=== PATIENT | female | born 1980 | race Two or more races ===

== ENCOUNTER 2016-09-29 10:03 | Emergency (ER) | payer OTHER ==
[2016-09-29 10:07] VITALS: TEMP 98.1; BMI 37.1
[2016-09-29] MEDS ORDERED: ONDANSETRON 4 MG/2 ML VIAL IVPB ONE (10:26)
[2016-09-29] MEDS ORDERED: SODIUM CHLORIDE 1,000 ML IV ONE (10:26)
[2016-09-29] MEDS ORDERED: ONDANSETRON 4 MG/2 ML VIAL ONE (10:59)
[2016-09-29] MEDS ORDERED: METOCLOPRAMIDE HCL INJECTION 10 MG/2 ML VIAL IVPUSH ONE (11:00)
[2016-09-29] MEDS ORDERED: METOCLOPRAMIDE HCL INJECTION 10 MG/2 ML VIAL ONE (11:01)
--- NOTE | 2016-09-29 11:06 | PDOC ---
History of Present Illness - General Chief Complaint: Nausea/Vomiting Stated Complaint: vomiting Time Seen by Provider: 09/29/16 10:25 History Source: Patient Exam Limitations: No Limitations - History of Present Illness Initial Comments: 09/29/16 11:02 36y F hx of migraines, approx 2 weeks s/p gastric bypass presents with headache. The pt states that she had a gradual onset headache last night, that is frontal, pounding, sasociated with photophobia, nausea/vomiting, radiates to the right side and to the posterior scalp similar in nature to previous headaches (states she was dx in [place], takes tramadol, but did not take any meds last night). pt deneis any vision changes, numbness/tingling/weakness, abdominal pain, fever/chills, dysuria, frequency. pt denies any allergies LMP was 2 yrs ago - staets she took a depo shot, but her period has not returned to normal. Past History - Past Medical History Allergies/Adverse Reactions: Allergies Allergy/AdvReac Type Severity Reaction Status Date / Time No Known Allergies Allergy Verified 01/22/15 16:36 Home Medications: Ambulatory Orders NK [No Known Home Medication] 01/22/15 Asthma: No Cancer: No Cardiac Disorders: No Diabetes: No HTN: Yes Suicide Attempt (Hx): No Seizures: No Thyroid Disease: No - Surgical History Gastric Stapling: Yes ([facility] 08/2016) - Psycho/Social/Smoking Cessation Hx Anxiety: No Suicidal Ideation: No Smoking History: Never smoked Have you smoked in the past 12 months: No Information on smoking cessation initiated: No Hx Alcohol Use: No Drug/Substance Use Hx: No Substance Use Type: None Hx Substance Use Treatment: No Review of Systems - Review of Systems Able to Perform ROS?: Yes Comments:: 09/29/16 11:04 Constitutional - no reported Fever, Chills, weakness, HEENT: no reported vision changes, sore throat Respiratory: no reported cough, sob, hemoptysis Cardiac: no reported chest pain, palpitations, light headedness, leg swelling Abd/GI: + nausea, vomiting, no reported abd pain, blood per rectum, melena, diarrhea : no reported dysuria, frequency, discharge Musculskelatal - no reported back pain, joint swelling skin - no reported bruising, erythema, rash neurological: +headache, no reported numbness, focal weakness, tingling, ataxia , weakness hematologic: no reported anemia, easy bruising, easy bleeding *Physical Exam - Vital Signs Last Vital Signs Temp Pulse Resp BP Pulse Ox 98.1 F 62 20 142/85 100 09/29/16 10:04 09/29/16 10:04 09/29/16 10:04 09/29/16 10:04 09/29/16 10:04 - Physical Exam Comments: 09/29/16 11:04 GENERAL: The patient is awake, alert, and fully oriented, Nontoxic - in no acute distress. HEAD: Normocephalic, atraumatic. EYES: extraocular movements intact, sclera anicteric, conjunctiva clear, PEERL ENT: Normal voice, Moist mucous membranes. NECK: Normal range of motion, supple LUNGS: Breath sounds equal, clear to auscultation bilaterally. No wheezes, no rhonchi, no rales. HEART: Regular rate and rhythm, normal S1 and S2 without murmur, rub or gallop. ABDOMEN: Soft, nontender, normoactive bowel sounds. No guarding, no rebound. No CVA tenderness, 3healing scars in the mid abdomen without erythema/fluctuance /discharge EXTREMITIES: Normal range of motion, no edema. No clubbing or cyanosis. No cords, erythema, or tenderness. NEUROLOGICAL: No facial assymetry, Normal speech, moving all 4 extremities spontaneously and symmetrically, PSYCH: Normal mood, normal affect. 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 I answered all of the patient's questions. The patient was satisfied with the care received and felt comfortable with the discharge plan and treatment plan. The patient will call their primary care physician within 24 hours to arrange follow-up and will return to the Emergency Department with any new, persistent or worsening symptoms. *DC/Admit/Observation/Transfer Diagnosis at time of Disposition: Migraine Qualifiers: Migraine type: other Status migrainosus presence: without status migrainosus Intractability: not intractable Qualified Code(s): G43.809 - Other migraine, not intractable, without status migrainosus - Discharge Dispostion Disposition: HOME Condition at time of disposition: Improved Admit: No - Referrals Referrals: Lila Kimball MD [Primary Care Provider] - Carito Perdomo MD [Staff Physician] - - Patient Instructions Printed Discharge Instructions: DI for Migraine Additional Instructions: Vuelva al departamento de emergencia inmediatamente con CUALQUIER nuevo, persistente o empeorando sntomas incluyendo dolor de ally recurrente, vmitos , cambios de visin, entumecimiento, hormigueo, debilidad o cualquier otra preocupacin. Asegrese de que est recibiendo un sueo adecuado en la hidratacin. [place] ibuprofeno o Tylenol para hay dolor de ally. Usted DEBE llamar y seguir con hay doctor maana para la evaluacin adicional de amol sntomas. Los resultados fueron discutidos con usted. Por favor, asegrese de que hay mdico revise los resultados de hay evaluacin de emergencia. ========= Return to the emergency department immediately with ANY new, persistent or worsening symptoms including recurrent headache, vomiting, vision changes, numbness, tingling, weakness or any other concerns. Make sure you are getting adequate sleep at hydration. Take ibuprofen or Tylenol for your headache. You MUST call and follow up with your doctor tomorrow for further evaluation of your symptoms. Results were discussed with you. Please make sure your doctor reviews the results of your emergency evaluation. Print Language: YORUBA
[2016-09-29 11:38] LABS: BASOPHIL 0.4 % (0-2.0); EOSINOPHIL 0.4 % (0-4.5); MCHC 34.2 g/dl (32.0-36.0); MEAN CELL VOLUME 87.7 fl (80-96); MEAN PLT VOLUME 8.5 fl (7.5-11.1); NEUTROPHILS 79.1 % (42.8-82.8); PLATELET COUNT 358 K/MM3 (134-434); RDW 13.4 % (11.6-15.6); WHITE BLOOD COUNT 7.3 K/mm3 (4.0-10.0)
[2016-09-29 12:03] LABS: ALBUMIN 3.9 g/dl (3.4-5.0); ALK PHOS 70 U/L (45-117); ANION GAP 11 (8-16); BILIRUBIN,TOTAL 0.3 mg/dL (0.2-1.0); CALCIUM 9.2 mg/dL (8.5-10.1); CO2 27 mmol/L (21-32); CREATININE 0.7 mg/dL (0.55-1.02); GLUCOSE,RANDOM 84 mg/dL (74-106); SGOT/AST 30 U/L (15-37); SGPT/ALT 47 U/L (12-78); TOT PROT 7.5 g/dl (6.4-8.2)
[2016-09-29 12:36] LABS: URINE APPEARANCE CLEAR; URINE BILIRUBIN NEGATIVE (NEGATIVE); URINE COLOR LTYELLOW; URINE GLUCOSE (UA) NEGATIVE (NEGATIVE); URINE KETONE 1+ (NEGATIVE); URINE NITRITE NEGATIVE (NEGATIVE); URINE PROTEIN NEGATIVE (NEGATIVE); URINE UROBILINOGEN NEGATIVE E.U./dl (0.2-1.0)
[2016-09-29 12:42] LABS: URINE BLOOD 1+ (NEGATIVE); URINE LEUK ESTERASE 1+ (NEGATIVE)
[2016-09-29] MEDS ORDERED: KETOROLAC TROMETHAMINE 30 MG/1 ML VIAL IVPUSH ONE (12:52)
[2016-09-29] MEDS ORDERED: MAGNESIUM SULF 50% (8.12 MEQ/2 ML-1 GM VIAL) IVPB ONE (12:52)
[2016-09-29 12:55] LABS: URINE MUCUS RARE; URINE RBC 1 /hpf (0-3); URINE WBC 6 /hpf (3-5)
[2016-09-29] MEDS ORDERED: MAGNESIUM SULF 50% (8.12 MEQ/2 ML-1 GM VIAL) ONE (13:53)
[2016-09-29] MEDS ORDERED: KETOROLAC TROMETHAMINE 30 MG/1 ML VIAL ONE (13:54)
[2016-09-29 15:03] VITALS: BP 130/68; PULSE 73
== END 2016-09-29 15:03 | disposition home or self-care (01) ==
LOC: JER 10:03
PROC: 3E0333Z Introduction of Anti-inflammatory into Peripheral Vein, Percutaneous Approach (ICD-10-PCS; principal; 2016-09-29)
PROC: 3E033GC Introduction of Other Therapeutic Substance into Peripheral Vein, Percutaneous Approach (ICD-10-PCS; 2016-09-29)
PROC: 3E0337Z Introduction of Electrolytic and Water Balance Substance into Peripheral Vein, Percutaneous Approach (ICD-10-PCS; 2016-09-29)
DX: G43.809 Other migraine, not intractable, without status migrainosus (principal); Z98.84 Bariatric surgery status; I10 Essential (primary) hypertension
CPT/HCPCS: 36415; 80053; 81003; 81015; 84703; 85025; 96361; 96374; 96375; 99284-25

== ENCOUNTER 2016-11-18 09:07 | Emergency (ER) | payer OTHER ==
[2016-11-18 09:21] VITALS: BP 115/82; PULSE 75; TEMP 98.1; BMI 32.0
[2016-11-18] MEDS ORDERED: ACETAMINOPHEN 500 MG TABLET (FP) ONE (10:42)
[2016-11-18] MEDS ORDERED: DIPHTH,PERTUSS(ACELL),TET 0.5 ML DISP.SYRIN IM ONE (11:07)
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
== END 2016-11-18 11:28 | disposition home or self-care (01) ==
LOC: JER 09:07 → JERFT 09:07
PROC: 0HQGXZZ Repair Left Hand Skin, External Approach (ICD-10-PCS; principal; 2016-11-18)
PROC: 3E0234Z Introduction of Serum, Toxoid and Vaccine into Muscle, Percutaneous Approach (ICD-10-PCS; 2016-11-18)
DX: S61.412A Laceration without foreign body of left hand, initial encounter (principal); W26.0XXA Contact with knife, initial encounter; Y93.89 Activity, other specified; Y92.038 Other place in apartment as the place of occurrence of the external cause; I10 Essential (primary) hypertension
CPT/HCPCS: 12001-25; 90471; 90715; 99281-25

== ENCOUNTER 2017-02-21 09:25 | Emergency (ER) | payer OTHER ==
[2017-02-21 09:29] VITALS: BP 129/91; PULSE 71; TEMP 98; BMI 29.2
--- NOTE | 2017-02-21 10:14 | PDOC ---
History of Present Illness - General Chief Complaint: Injury Stated Complaint: RT FOREARM PAIN, BRUISE Time Seen by Provider: 02/21/17 09:55 History Source: Patient Exam Limitations: No Limitations - History of Present Illness Initial Comments: 02/21/17 10:14 My chief complaint: Right lateral wrist pain History of present illness: Patient is a 37-year-old female with no significant medical history here today complaining of right lateral wrist pain after twisting her right wrist holding a large bottle of water last night. Patient reports that pain is currently as 6 out of 10. Patient took acetaminophen last night nothing today. There is no gross deformity of her right wrist or hand or forearm noted. Patient denies any numbness of her right hand or wrist. 02/21/17 12:02 Occurred: reports: yesterday Severity: reports: moderate (rt. lateral wrist ) Upper Extremity Pain Location: right: wrist (lateral ) Method of Injury: reports: twisted (rt. wrist while picking up a large bottle of water) Modifying Factors: improves with: None Extremity Pain Location - Extremity Pain Location Extremity Pain Locations: right: other (lateral wrist) Past History - Past Medical History Allergies/Adverse Reactions: Allergies Allergy/AdvReac Type Severity Reaction Status Date / Time No Known Allergies Allergy Verified 02/21/17 09:29 Home Medications: Ambulatory Orders Naproxen [Naprosyn -] 500 mg PO BID PRN #14 tablet 02/21/17 Asthma: No Cancer: No Cardiac Disorders: No Diabetes: No HTN: No Suicide Attempt (Hx): No Seizures: No Thyroid Disease: No - Surgical History Gastric Stapling: Yes ([facility] 08/2016) - Psycho/Social/Smoking Cessation Hx Anxiety: No Suicidal Ideation: No Smoking History: Never smoked Have you smoked in the past 12 months: No Hx Alcohol Use: No Drug/Substance Use Hx: No Substance Use Type: None Hx Substance Use Treatment: No Review of Systems - Review of Systems Able to Perform ROS?: Yes Constitutional: No: Symptoms Reported HEENTM: No: Symptoms Reported Respiratory: No: Symptoms reported Cardiac (ROS): No: Symptoms Reported ABD/GI: No: Symptoms Reported : No: Symptoms Reported Musculoskeletal: Yes: Joint Pain (rt. lateral wrist). No: Joint Swelling Integumentary: No: Symptoms Reported Neurological: No: Symptoms reported *Physical Exam - Vital Signs Last Vital Signs Temp Pulse Resp BP Pulse Ox 98.0 F 71 18 129/91 100 02/21/17 09:26 02/21/17 09:26 02/21/17 09:26 02/21/17 09:26 02/21/17 09:26 - Physical Exam General Appearance: Yes: Appropriately Dressed Comments:: 02/21/17 10:10 radial pulse 4 + rt. Extremity: positive: Normal Capillary Refill, Normal Inspection, Normal Range of Motion (rt. wrist, elbow, all digits rt. hand), Tender (rt.lateral wrist) Integumentary: positive: Normal Color Neurologic: positive: Normal Response, Respond to painful stimul (rt. hand/wrist /forearm), Responsive. negative: Motor Strength 5/5 (motor/strength rt. wrist 3 /4), Numbness, Sensory Deficit (rt. hand/wrist/forearm) Procedures - Consent Consent obtained: From Patient - Splinting Splint Location: Right: Wrist Pre-Proc Neuro Vasc Exam: normal Splint Type: Yes: Wrist (wrist ) Post-Proc Neuro Vasc Exam: normal Rad Bandage: 3" Sling: No Complications: No Medical Decision Making - Medical Decision Making 02/21/17 10:15 Patient is a 37-year-old female with no significant medical history here today complaining of right lateral wrist pain after twisting her right wrist holding a large bottle of water last night. Patient reports that pain is currently as 6 out of 10. Patient took acetaminophen last night nothing today. There is no gross deformity of her right wrist or hand or forearm noted. Patient denies any numbness of her right hand or wrist. r/o amadou abnormality rt. wrist versus strain rt.wrist PLAN: urine hcg negative xray rt. wrist no gross abnormality noted per Dr. Krishnamurthy 02/21/17 10:55 02/21/17 12:02 02/22/17 08:20 *DC/Admit/Observation/Transfer Diagnosis at time of Disposition: Sprain of wrist, right Qualifiers: Encounter type: initial encounter Qualified Code(s): S63.501A - Unspecified sprain of right wrist, initial encounter - Discharge Dispostion Disposition: HOME Condition at time of disposition: Stable - Prescriptions Prescriptions: Naproxen [Naprosyn -] 500 mg PO BID PRN #14 tablet PRN Reason: Pain - Referrals Referrals: Lila Kimball MD [Primary Care Provider] - James Licae MD [Staff Physician] - - Patient Instructions Additional Instructions: Follow up with orthopedist if pain persist Wear wrist immobilizer during the day take off at night Return to emergency room if symptoms worsen any numbness of your right hand or wrist or forearm Patient voiced understanding of discharge instructions and all questions were answered Seguir con un ortopedista si el dolor persiste Use inmovilizador de mueca naif el da despegue en la noche Regrese a la hossein de emergencias si los sntomas empeoran cualquier entumecimiento de hay mano derecha o mueca o antebrazo Comprensin del paciente sobre las instrucciones de mick y todas las preguntas fueron contestadas
[2017-02-21] MEDS ORDERED: NAPROXEN 500 MG TABLET (FP) PO ONE (10:57)
[2017-02-21] MEDS ORDERED: NAPROXEN 500 MG TABLET (FP) ONE (11:02)
== END 2017-02-21 12:13 | disposition home or self-care (01) ==
LOC: JERFT 09:25
PROC: 2W3EX1Z Immobilization of Right Hand using Splint (ICD-10-PCS; principal; 2017-02-21)
DX: S63.501A Unspecified sprain of right wrist, initial encounter (principal); X58.XXXA Exposure to other specified factors, initial encounter; Y93.89 Activity, other specified; Y92.9 Unspecified place or not applicable
CPT/HCPCS: 73110-TC-RT; 73130-TC-RT; 84703; 99281-25

== ENCOUNTER 2017-04-06 09:33 | Emergency (ER) | payer OTHER ==
[2017-04-06 09:45] VITALS: BP 106/69; PULSE 57; TEMP 97.9; BMI 29.2
--- NOTE | 2017-04-06 10:30 | PDOC ---
History of Present Illness - General Chief Complaint: Headache Stated Complaint: HEAD PAIN Time Seen by Provider: 04/06/17 10:28 History Source: Patient Exam Limitations: No Limitations - History of Present Illness Initial Comments: CHIEF COMPLAINT: 37 y/o afebrile female with no significant PMH c/o headache and nausea for the past 1 week. HISTORY OF PRESENT ILLNESS: The patient admits she has never had symptoms like this before. She has been taking 400mg of Advil periodically with no relief. She denies neck pain, dizziness, fall, head trauma, LOC, f/c, cough, changes in vision/hearing, v/d, CP, SOB, abd pain, back pain, hematuria, dysuria. She called her doctor, Dr. Chapman, and she suggested she come here. Vital signs on arrival are within normal limits. REVIEW OF SYSTEMS: GENERAL/CONSTITUTIONAL: No fever/chills. No weakness. No weight change. HEAD, EYES, EARS, NOSE AND THROAT: No change in vision. No ear pain or discharge. No sore throat. CARDIOVASCULAR: No chest pain or shortness of breath. RESPIRATORY: No cough, wheezing, or hemoptysis. GASTROINTESTINAL: +nausea. No vomiting, diarrhea, constipation. GENITOURINARY: No dysuria, frequency, or change in urination. MUSCULOSKELETAL: No joint or muscle swelling or pain. No neck or back pain. SKIN: No rash or easy bruising. NEUROLOGIC: +headache. No vertigo, loss of consciousness, or loss of sensation. PHYSICAL EXAM: GENERAL: The patient is awake, alert, and fully oriented, in no acute distress. She is very well appearing, ambulatory, in NAD or obvious discomfort. HEAD: Normal with no signs of trauma. Reproducible pain with palpation of left occipital region along left trapezius muscle. No hematomas. Full flexion, extension and lateral movements of cervical spine. No pain with palpation of maxillary or frontal sinuses. NECK: No midline cervical spine TTP. ENT: Pupils equal, round and reactive to light, extraocular movements intact, sclera anicteric, conjunctiva clear. LUNGS: Clear to auscultation bilaterally. Normal excursion. No respiratory distress or use of accessory muscles. CV: RRR, S1/S2, no MRG. Cap refill < 2 sec. ABDOMEN: Soft, non-distended, non-tender even to deep palpation, no hepatomegaly or splenomegaly, no masses. EXTREMITIES: Normal range of motion, no edema. NEUROLOGICAL: Normal speech, normal gait. CN II-XII grossly intact. PSYCH: Normal mood, normal affect. SKIN: Warm, dry, normal turgor, no rashes or lesions noted. Past History - Past Medical History Allergies/Adverse Reactions: Allergies Allergy/AdvReac Type Severity Reaction Status Date / Time No Known Allergies Allergy Verified 04/06/17 09:41 Home Medications: Ambulatory Orders Naproxen [Naprosyn -] 500 mg PO BID PRN #14 tablet 02/21/17 Asthma: No Cancer: No Cardiac Disorders: No Diabetes: No HTN: No Suicide Attempt (Hx): No Seizures: No Thyroid Disease: No Other medical history: none - Surgical History Gastric Stapling: Yes ([facility] 08/2016) - Psycho/Social/Smoking Cessation Hx Anxiety: No Suicidal Ideation: No Smoking History: Never smoked Have you smoked in the past 12 months: No Information on smoking cessation initiated: No Hx Alcohol Use: No Drug/Substance Use Hx: No Substance Use Type: None Hx Substance Use Treatment: No *Physical Exam - Vital Signs Last Vital Signs Temp Pulse Resp BP Pulse Ox 97.9 F 57 L 18 106/69 100 04/06/17 09:42 04/06/17 09:42 04/06/17 09:42 04/06/17 09:42 04/06/17 09:42 Medical Decision Making - Medical Decision Making A/P: 37 y/o female with headache and nausea x 1 week. Plan is as follows: 1. UA/hcg hcg - positive UA negative for UTI. Gave the patient her results. She was shocked. Informed her she can only take Tylenol for pain and should drink at least 64oz of water per day. Instructed her to f/u with either her BARREL INSPECTOR TIGHT or Dr. Mckoy as soon as possible for follow up. Patient's vital signs remain good. She has no abdominal pain, vaginal bleeding or abnormal vaginal discharge. Pt instructed to return to the ER with any worsening or concerning symptoms. The patient verbalizes understanding of all instructions, has no further questions and is awaiting discharge. *DC/Admit/Observation/Transfer Diagnosis at time of Disposition: Nausea Qualifiers: Weeks of gestation: unspecified Qualified Code(s): Z34.90 - Encounter for supervision of normal , unspecified, unspecified trimester Headache Qualifiers: Headache type: unspecified Headache chronicity pattern: acute headache Intractability: not intractable Qualified Code(s): R51 - Headache - Discharge Dispostion Disposition: HOME Condition at time of disposition: Good - Referrals Referrals: Lila Kimball MD [Primary Care Provider] - Jose Mckoy MD [Staff Physician] - Call tomorrow - Patient Instructions Printed Discharge Instructions: DI for -- Discomforts and Remedies Additional Instructions: Discharge Instructions: -You can take Tylenol for your headaches only -Drink plenty of water -Call your BARREL INSPECTOR T[facility] and schedule a follow up appointment -Return to the ER with any worsening or concerning symptoms. Instrucciones de mick: -Usted puede aldo Tylenol solo para amol rich de ally -Beber abundante agua - Llame a hay obstetra / gineclogo y programe dasia aniket de seguimiento -Vuelva a la hossein de emergencias con cualquier empeoramiento o sntomas relacionados. Print Language: MALTESE
[2017-04-06] MEDS ORDERED: KETOROLAC TROMETHAMINE 60 MG/2 ML VIAL IM ONE (10:58)
[2017-04-06 11:08] LABS: URINE APPEARANCE CLEAR; URINE BILIRUBIN NEGATIVE (NEGATIVE); URINE BLOOD NEGATIVE (NEGATIVE); URINE COLOR LTYELLOW; URINE GLUCOSE (UA) NEGATIVE (NEGATIVE); URINE KETONE NEGATIVE (NEGATIVE); URINE LEUK ESTERASE NEGATIVE (NEGATIVE); URINE NITRITE NEGATIVE (NEGATIVE); URINE PROTEIN NEGATIVE (NEGATIVE); URINE UROBILINOGEN NEGATIVE mg/dL (0.2-1.0)
[2017-04-06] MEDS ORDERED: KETOROLAC TROMETHAMINE 60 MG/2 ML VIAL ONE (11:12)
== END 2017-04-06 11:43 | disposition home or self-care (01) ==
LOC: JER 09:33
DX: O26.899 Other specified pregnancy related conditions, unspecified trimester (principal); R51 Headache; Z3A.00 Weeks of gestation of pregnancy not specified
CPT/HCPCS: 81003; 84703; 99281-25

== ENCOUNTER 2017-11-22 12:05 | Inpatient (IN) | payer OTHER ==
[2017-11-22] MEDS ORDERED: ELECTROLYTE-148 SOLN 500 ML IV ONE (13:00)
[2017-11-22] MEDS ORDERED: CITRIC ACID/SODIUM CITRATE 30 ML UNIT-DOSE CUP PO ONE (13:00)
[2017-11-22 13:15] LABS: BASO % 1.5 % (0-2.0); EOS % 0.4 % (0-4.5); HEMATOCRIT 34.7 % (32.4-45.2); HEMOGLOBIN 11.9 GM/dL (10.7-15.3); LYMPH % 30.3 % (8-40); MCH 31.2 pg (25.7-33.7); MCHC 34.2 g/dl (32.0-36.0); MEAN CELL VOLUME 91.1 fl (80-96); MEAN PLT VOLUME 9.3 fl (7.5-11.1); MONO % 5.2 % (3.8-10.2); NEUT % 62.6 % (42.8-82.8); PLATELET COUNT 283 K/MM3 (134-434); RBC 3.81 M/mm3 (3.60-5.2); WHITE BLOOD COUNT 7.5 K/mm3 (4.0-10.0)
[2017-11-22 13:23] VITALS: BMI 29.6
[2017-11-22 13:25] LABS: INR 0.96 (0.82-1.09); PROTHROMBIN TIME (PATIENT) 10.8 SEC (9.98-11.88)
[2017-11-22 13:28] LABS: ACTIVATED PTT 29.3 SECONDS (26.9-34.4)
[2017-11-22 13:40] LABS: ANION GAP 10 (8-16); BLOOD UREA NITROGEN 11 mg/dL (7-18); CALCIUM 8.4 mg/dL (8.5-10.1); CHLORIDE 104 mmol/L (98-107); CO2 23 mmol/L (21-32); CREATININE 0.5 mg/dL (0.55-1.02); GLUCOSE,RANDOM 71 mg/dL (74-106); POTASSIUM 3.9 mmol/L (3.5-5.1); SODIUM 137 mmol/L (136-145)
[2017-11-22] MEDS: ELECTROLYTE-148 SOLN 1,000 ML IV SCH (13:45)
[2017-11-22] MEDS ORDERED: ceFAZolin SODIUM 1 GM VIAL ONE (14:36)
[2017-11-22] MEDS ORDERED: morphine SULFATE/Preservative Free 0.5 MG/ML (1cc Syringe) ONE (14:36)
--- NOTE | 2017-11-22 14:40 | HP ---
Past Medical History - Primary Care Physician PCP:: Jose Mckoy - Admission Chief Complaint: 39 weeks, previous c/s, ama. request of c/s History of Present Illness: 37 yo f , 39 weeks, with 2 previous c/s , request of repeat c/s and btl , , risks discussed ,aware small failure risk and risk of ectopic , cx clp vx - 3 mi, fhr cat 1, irregular contraction History Source: Patient Limitations to Obtaining History: No Limitations - Past Medical History ...: 3 ...Para: 2 ...Term: 2 ...: 0 ...Spon : 0 ...Induced : 0 ...Multiple Gestation: 0 ...LMP: 03/21/17 ... Weeks Gestation by Dates: 35.1 ...EDC by Dates: 12/26/17 ...EDC by Sono: 11/28/17 - Past Surgical History Past Surgical History: Yes: Hx Myomectomy: No Hx Transabdominal Cerclage: No - Smoking History Smoking history: Never smoked Have you smoked in the past 12 months: No - Alcohol/Substance Use Hx Alcohol Use: No - Social History Usual Living Arrangement: Yes: With Spouse History of Recent Travel: No Home Medications - Allergies Allergies/Adverse Reactions: Allergies Allergy/AdvReac Type Severity Reaction Status Date / Time No Known Allergies Allergy Verified 11/22/17 13:57 - Home Medications Home Medications: Ambulatory Orders Iron 1 tab PO DAILY 09/15/17 Vitamins (Sjr) - 1 tab PO DAILY 09/15/17 Review of Systems - Review of Systems Constitutional: reports: No Symptoms Eyes: reports: No Symptoms HENT: reports: No Symptoms Neck: reports: No Symptoms Cardiovascular: reports: No Symptoms Respiratory: reports: No Symptoms Gastrointestinal: reports: No Symptoms Genitourinary: reports: No Symptoms Breasts: reports: No Symptoms Reported Musculoskeletal: reports: No Symptoms Integumentary: reports: No Symptoms Neurological: reports: No Symptoms Endocrine: reports: No Symptoms Hematology/Lymphatic: reports: No Symptoms Psychiatric: reports: No Symptoms Physical Exam - Maternity Vital Signs: Vital Signs Temperature 97.9 F 11/22/17 12:05 Pulse Rate 86 11/22/17 12:05 Respiratory Rate 18 11/22/17 12:05 Blood Pressure 120/60 11/22/17 12:05 O2 Sat by Pulse Oximetry (%) - Abdominal Exam/OB Fundal Height: 40 Presentation: Vertex Contractions: Yes Regularity: Irregular Monitor Mode: External Heart Rate Location: [facility] Category: I Accelerations: Uniform Decelerations: None - Vaginal Exam/OB Vaginal Bleediing: No Speculum Exam: Yes Dilatation (cm): closed Effacement (%): 0 Amniotic Membrane Status: Intact Presentation: Vertex/Position Station: -3 - Physical Exam Musculoskeletal: Yes: WNL Extremities: Yes: WNL Edema: Yes Edema: LLE: Trace, RLE: Trace Deep Tendon Reflex Grade: Normal +2 ...Motor Strength: WNL Psychiatric: Yes: WNL - Labs Lab Results: CBC, BMP 11/22/17 12:55 11/22/17 12:55 Hemorrhage Risk Assessment - Risk Factors Medium Risk Factors: Yes: Prior , uterine surgery,or multiple laparotomies Risk Score: 1 Risk Level: Medium Risk Problem List - Problems (1) with 39 completed weeks gestation Code(s): Z3A.39 - 39 WEEKS GESTATION OF (2) Previous section complicating Code(s): O34.219 - MATERNAL CARE FOR UNSP TYPE SCAR FROM PREVIOUS DEL (3) Advanced maternal age (AMA) in Code(s): VPA1334 - Assessment/Plan repeat c/s. BTL, rba discussed
[2017-11-22] MEDS ORDERED: morphine SULFATE/Preservative Free 0.5 MG/ML (1cc Syringe) SPIN ONE (14:46)
[2017-11-22] MEDS ORDERED: PHENYLEPHRINE HCL 10 MG/1 ML SINGLE DOSE VIAL ONE (14:50)
[2017-11-22] MEDS ORDERED: OXYTOCIN 10 UNITS/ML VIAL ONE (14:57)
[2017-11-22] MEDS ORDERED: ONDANSETRON 4 MG/2 ML VIAL IVPUSH PRN (15:02)
[2017-11-22] MEDS ORDERED: BENZOCAINE 28 GM HEMORRHOIDAL OINTMENT PR PRN (15:33)
[2017-11-22] MEDS ORDERED: oxyCODONE HCL 5 MG TABLET PO PRN (15:33)
[2017-11-22] MEDS ORDERED: WITCH HAZEL 50% (TUCKS) 40 PAD/JAR PAD TP PRN (15:33)
[2017-11-22] MEDS ORDERED: METHYLERGONOVINE MALEATE 0.2 MG/1 ML AMP IM PRN (15:33)
[2017-11-22] MEDS ORDERED: BENZOCAINE 20% 57 GM BOTTLE TP PRN (15:33)
[2017-11-22] MEDS ORDERED: diphenhydrAMINE HCL 25 MG CAPSULE (FP) PO PRN (15:33)
[2017-11-22] MEDS ORDERED: ACETAMINOPHEN INJECTION 100 ML IVPB ONE (15:45)
[2017-11-22] MEDS ORDERED: OXYTOCIN 20 UNITS in 0.9% NS 20 UNIT/1,000 ML INFUS.BAG IV SCH (15:45)
--- NOTE | 2017-11-22 16:17 | OP ---
DATE OF OPERATION: 11/22/2017 PREOPERATIVE DIAGNOSIS: 39 weeks, previous section, advanced maternal age, voluntary sterilization. POSTOPERATIVE DIAGNOSIS: 39 weeks, previous section, advanced maternal age, voluntary sterilization. PROCEDURE: Repeat low segment transverse section and bilateral tubal ligation. SURGEON: Alpesh Mckoy M.D. SAND CONDITIONER: Bhavin Gonzalez ANESTHESIA: Spinal. ANESTHESIOLOGIST: Baltazar Szymanski M.D. ESTIMATED BLOOD LOSS: 500 mL. OPERATION: Patient was taken to operating room with adequate spinal anesthesia. Abdomen and perineum were prepped and draped. Pfannenstiel abdominal skin incision was made over the previous incision. Abdominal wall was cut layer by layer until the peritoneum was exposed and incised. Upon entering the abdominal cavity, the lower uterine segment was identified, and uterovesical fold of the peritoneum was established. The bladder was pushed down. Then with the lower blade of the [place] retractor in the pelvis, a low transverse uterine incision was made. The incision extended laterally with band-aid scissors. Amniotic sac was entered. Clear fluid. Head delivered from right occipital transverse position. Nasopharynx was suctioned. A live baby was delivered without any difficulty. Placenta was delivered manually. Uterine cavity was cleared of all remaining tissue. Uterine incision was closed in 2 layers, the 1st layer with 0 Biosyn continuous suture, the 2nd layer with 0 Biosyn imbricating the 1st layer. Bladder flap was closed with 0 Biosyn continuous suture. Both tubes and ovaries were checked and were normal. Then right tube was grasped with Lehr clamp. Right tube was doubly tied with 2-0 plain. Portion of tube was removed, and endosalpinx was removed and then cauterized. The same procedure repeated for opposite tube. No active bleeding was seen. All the lap, sponge, and instrument counts were correct. Pelvic cavity was several times irrigated, and then peritoneum was closed with 0 Biosyn continuous suture. Muscles were brought together interrupted suture with 0 Biosyn. Fascia was closed with 0 Biosyn continuous sutures. Subcutaneous with interrupted sutures 0 Biosyn, and the skin was closed with maury. The patient tolerated the procedure well and left the OR in good condition. ALPESH MCKOY M.D. [id number]
[2017-11-22] MEDS ORDERED: OXYTOCIN 20 UNITS in 0.9% NS 20 UNIT/1,000 ML INFUS.BAG IV ONE (17:11)
[2017-11-22] MEDS ORDERED: ACETAMINOPHEN 1000 MG/100 ML VIAL (NON FORMULARY) IVPB ONE ×2 (17:33→18:45)
[2017-11-22] MEDS ORDERED: CEFAZOLIN 1 GM PUSH 1 GM/10 ML DISP.SYRIN IVPUSH SCH (18:00)
[2017-11-22] MEDS: CEFAZOLIN 1 GM PUSH 1 GM/10 ML DISP.SYRIN IVPUSH SCH (22:22)
[2017-11-23] MEDS: IBUPROFEN 800 MG/8 ML IJ IVPB PRN ×2 (00:50→09:56)
[2017-11-23] MEDS: CEFAZOLIN 1 GM PUSH 1 GM/10 ML DISP.SYRIN IVPUSH SCH (05:50)
[2017-11-23 08:16] LABS: BASO % 0.9 % (0-2.0); EOS % 0.7 % (0-4.5); HEMATOCRIT 29.3 % (32.4-45.2); HEMOGLOBIN 10.2 GM/dL (10.7-15.3); LYMPH % 27.9 % (8-40); MCHC 34.8 g/dl (32.0-36.0); MEAN PLT VOLUME 9.7 fl (7.5-11.1); MONO % 6.8 % (3.8-10.2); NEUT % 63.7 % (42.8-82.8); PLATELET COUNT 197 K/MM3 (134-434); RBC 3.19 M/mm3 (3.60-5.2); WHITE BLOOD COUNT 9.1 K/mm3 (4.0-10.0)
--- NOTE | 2017-11-23 09:26 | PN ---
Progress Note (short form) - Note Progress Note: Anesthesia Post op/Pain Pt seen and examined S;Alert and awake comfortable O; Vital Signs Temperature 98.5 F 11/23/17 06:00 Pulse Rate 50 L 11/23/17 06:00 Respiratory Rate 20 11/23/17 06:00 Blood Pressure 97/50 11/23/17 06:00 O2 Sat by Pulse Oximetry (%) 100 11/22/17 17:10 CBC, BMP 11/23/17 07:20 11/22/17 12:55 A/P: Current Active Problems Advanced maternal age (AMA) in (Acute) with 39 completed weeks gestation (Acute) Previous section complicating (Acute) s/p c section Doing well post op Continue current care Burt Kathleen MD
[2017-11-23] MEDS: ENOXAPARIN NA (PORCINE) 40 MG/0.4 ML DISP.SYRIN SQ SCH (09:41)
--- NOTE | 2017-11-23 12:48 | PN ---
Progress Note (short form) - Note Progress Note: pod 1 doing well CBC, BMP 11/23/17 07:20 11/22/17 12:55 abdomen soft, no distension, no cva incision dry, clean no calf tenderness plan ambulate , advance diet pain management Last Vital Signs Temp Pulse Resp BP Pulse Ox 98.6 F 55 L 20 108/52 100 11/23/17 10:00 11/23/17 10:00 11/23/17 10:00 11/23/17 10:00 11/22/17 17:10 Problem List - Problems (1) with 39 completed weeks gestation Code(s): Z3A.39 - 39 WEEKS GESTATION OF (2) Previous section complicating Code(s): O34.219 - MATERNAL CARE FOR UNSP TYPE SCAR FROM PREVIOUS DEL (3) Advanced maternal age (AMA) in Code(s): [id number] -
[2017-11-23] MEDS ORDERED: BISACODYL 10 MG SUPP.RECT PR PRN (15:33)
[2017-11-23] MEDS: ACETAMINOPHEN 325 MG TABLET (FP) PO PRN ×2 (16:47→19:52)
[2017-11-23] MEDS: IBUPROFEN 600 MG TABLET (FP) PO PRN ×2 (16:49→19:51)
[2017-11-23] MEDS ORDERED: FLU VACC QS2017-18 36MOS UP/PF 60 MCG/0.5 ML SYRINGE IM ONE (18:00)
[2017-11-23] MEDS ORDERED: DIPHTH,PERTUSS(ACELL),TET 0.5 ML DISP.SYRIN IM ONE (18:00)
[2017-11-23] MEDS: SIMETHICONE 80 MG TAB.CHEW (FP) PO PRN (19:51)
[2017-11-24] MEDS: IBUPROFEN 600 MG TABLET (FP) PO PRN ×4 (03:06→21:46)
[2017-11-24] MEDS: SIMETHICONE 80 MG TAB.CHEW (FP) PO PRN ×5 (03:06→21:45)
[2017-11-24] MEDS: ACETAMINOPHEN 325 MG TABLET (FP) PO PRN ×4 (03:06→21:45)
[2017-11-24] MEDS: ENOXAPARIN NA (PORCINE) 40 MG/0.4 ML DISP.SYRIN SQ SCH (09:27)
--- NOTE | 2017-11-24 09:43 | PN ---
Post Progress Note Post Day: 2 Type of Delivery: Repeat C/S Vital Signs: Vital Signs Temperature 97.6 F 11/23/17 21:00 Pulse Rate 60 11/23/17 21:00 Respiratory Rate 20 11/23/17 21:00 Blood Pressure 96/63 11/23/17 21:00 O2 Sat by Pulse Oximetry (%) 100 11/22/17 17:10 Breast Exam: Yes: Soft Uterus: Yes: Fundus Firm Incision: Yes: Dressing dry and intact Abdomen/GI: Yes: Abdomen soft Lochia: Yes: Rubra Lochia, amount: Small Extremities: Yes: Calves non-tender Perineum: Yes: Intact Activity: Ambulating - Labs Labs: CBC WBC 9.1 K/mm3 (4.0-10.0) 11/23/17 07:20 RBC 3.19 M/mm3 (3.60-5.2) L 11/23/17 07:20 Hgb 10.2 GM/dL (10.7-15.3) L D 11/23/17 07:20 Hct 29.3 % (32.4-45.2) L D 11/23/17 07:20 MCV 92.0 fl (80-96) 11/23/17 07:20 MCH 32.0 pg (25.7-33.7) 11/23/17 07:20 MCHC 34.8 g/dl (32.0-36.0) 11/23/17 07:20 RDW 13.0 % (11.6-15.6) 11/23/17 07:20 Plt Count 197 K/MM3 (134-434) D 11/23/17 07:20 MPV 9.7 fl (7.5-11.1) 11/23/17 07:20 Neutrophils % 63.7 % (42.8-82.8) 11/23/17 07:20 Lymphocytes % 27.9 % (8-40) 11/23/17 07:20 Monocytes % 6.8 % (3.8-10.2) 11/23/17 07:20 Eosinophils % 0.7 % (0-4.5) 11/23/17 07:20 Basophils % 0.9 % (0-2.0) 11/23/17 07:20 Assessment/Plan as above che3ck labs oob reg diet ambulate
[2017-11-24] MEDS: oxyCODONE HCL 5 MG TABLET PO PRN ×3 (12:10→21:46)
[2017-11-24] MEDS: SENNOSIDES/DOCUSATE COMBO (SENNA PLUS) TABLET (UD) PO PRN (21:45)
[2017-11-24] MEDS: ELECTROLYTE-148 SOLN 1,000 ML IV SCH ×2 (22:35→22:44)
[2017-11-24] MEDS: DEXTROSE 5%-LACTATED RINGERS 1,000 ML IV SCH (22:44)
[2017-11-25] MEDS: oxyCODONE HCL 5 MG TABLET PO PRN ×5 (02:01→21:45)
[2017-11-25] MEDS: SIMETHICONE 80 MG TAB.CHEW (FP) PO PRN ×5 (02:01→21:45)
[2017-11-25] MEDS: IBUPROFEN 600 MG TABLET (FP) PO PRN ×3 (02:01→21:45)
[2017-11-25] MEDS: ACETAMINOPHEN 325 MG TABLET (FP) PO PRN ×5 (02:02→21:45)
[2017-11-25 08:12] LABS: BASO % 0.5 % (0-2.0); EOS % 1.8 % (0-4.5); HEMATOCRIT 29.7 % (32.4-45.2); HEMOGLOBIN 10.1 GM/dL (10.7-15.3); LYMPH % 34.1 % (8-40); MCH 31.4 pg (25.7-33.7); MCHC 33.9 g/dl (32.0-36.0); MEAN CELL VOLUME 92.7 fl (80-96); MONO % 7.3 % (3.8-10.2); NEUT % 56.3 % (42.8-82.8); PLATELET COUNT 236 K/MM3 (134-434); RBC 3.21 M/mm3 (3.60-5.2); RDW 13.2 % (11.6-15.6); WHITE BLOOD COUNT 7.7 K/mm3 (4.0-10.0)
[2017-11-25] MEDS: ENOXAPARIN NA (PORCINE) 40 MG/0.4 ML DISP.SYRIN SQ SCH (09:48)
--- NOTE | 2017-11-25 11:05 | PN ---
Post Progress Note Post Day: 3 Type of Delivery: Repeat C/S Vital Signs: Vital Signs Temperature 97.9 F 11/25/17 08:00 Pulse Rate 59 L 11/25/17 08:00 Respiratory Rate 20 11/25/17 08:00 Blood Pressure 113/82 11/25/17 08:00 O2 Sat by Pulse Oximetry (%) 100 11/22/17 17:10 Breast Exam: Yes: Soft Uterus: Yes: Fundus Firm Incision: Yes: Anthony intact Abdomen/GI: Yes: Abdomen soft Lochia, amount: Small Extremities: Yes: Calves non-tender Perineum: Yes: Intact Activity: Ambulating - Labs Labs: CBC WBC 7.7 K/mm3 (4.0-10.0) 11/25/17 06:35 RBC 3.21 M/mm3 (3.60-5.2) L 11/25/17 06:35 Hgb 10.1 GM/dL (10.7-15.3) L 11/25/17 06:35 Hct 29.7 % (32.4-45.2) L 11/25/17 06:35 MCV 92.7 fl (80-96) 11/25/17 06:35 MCH 31.4 pg (25.7-33.7) 11/25/17 06:35 MCHC 33.9 g/dl (32.0-36.0) 11/25/17 06:35 RDW 13.2 % (11.6-15.6) 11/25/17 06:35 Plt Count 236 K/MM3 (134-434) 11/25/17 06:35 MPV 9.0 fl (7.5-11.1) 11/25/17 06:35 Neutrophils % 56.3 % (42.8-82.8) 11/25/17 06:35 Lymphocytes % 34.1 % (8-40) D 11/25/17 06:35 Monocytes % 7.3 % (3.8-10.2) 11/25/17 06:35 Eosinophils % 1.8 % (0-4.5) D 11/25/17 06:35 Basophils % 0.5 % (0-2.0) 11/25/17 06:35 Problem List - Problems (1) care following delivery Code(s): Z39.2 - ENCOUNTER FOR ROUTINE FOLLOW-UP Assessment/Plan Pt POD#3 s/p rpt c/s with BTL ambulation encouraged pain management as needed plan for discharge home tomorrow. Dr. Marie
[2017-11-25] MEDS: SENNOSIDES/DOCUSATE COMBO (SENNA PLUS) TABLET (UD) PO PRN (21:45)
[2017-11-26] MEDS: oxyCODONE HCL 5 MG TABLET PO PRN ×2 (04:50→10:04)
[2017-11-26] MEDS: SIMETHICONE 80 MG TAB.CHEW (FP) PO PRN ×2 (04:50→10:00)
[2017-11-26] MEDS: IBUPROFEN 600 MG TABLET (FP) PO PRN ×2 (04:50→16:40)
[2017-11-26] MEDS: ACETAMINOPHEN 325 MG TABLET (FP) PO PRN ×3 (04:51→16:40)
[2017-11-26 07:47] VITALS: BP 105/65; PULSE 54; TEMP 98.3
[2017-11-26] MEDS: ENOXAPARIN NA (PORCINE) 40 MG/0.4 ML DISP.SYRIN SQ SCH (10:00)
--- NOTE | 2017-11-26 17:07 | DS ---
Physical Exam-ACCOUNT SERVICES SPECIALIST Vital Signs: Vital Signs Temperature 98.3 F 11/26/17 07:46 Pulse Rate 54 L 11/26/17 07:46 Respiratory Rate 20 11/26/17 07:46 Blood Pressure 105/65 11/26/17 07:46 O2 Sat by Pulse Oximetry (%) 100 11/22/17 17:10 Constitutional: Yes: Well Nourished, No Distress, Calm Eyes: Yes: WNL, Conjunctiva Clear, EOM Intact HENT: Yes: WNL, Atraumatic, Normocephalic Neck: Yes: WNL, Supple, Trachea Midline Cardiovascular: Yes: WNL, Regular Rate and Rhythm Respiratory: Yes: WNL, Regular, CTA Bilaterally Gastrointestinal: Yes: WNL ...Rectal Exam: Yes: WNL Renal/: Yes: WNL Uterus: Yes: Enlarged ....Post : Yes: Uterus firm, Uterus non-tender, Slight lochia rubra Breast(s): Yes: WNL Musculoskeletal: Yes: WNL Extremities: Yes: WNL Edema: LLE: Trace, RLE: Trace Integumentary: Yes: WNL Wound/Incision: Yes: Clean/Dry, Well Approximated, Maury Removed Neurological: Yes: WNL, Alert, Oriented ...Motor Strength: WNL Psychiatric: Yes: WNL, Alert, Oriented Labs: CBC, BMP 11/25/17 06:35 11/22/17 12:55 Delivery - Delivery Section: Repeat, Low Flap Transverse (no complication) Type of Anesthesia: Spinal Episiotomy/Laceration: None EBL (cc): 500 Delivery, Single - Stages of Labor Date of Delivery: 11/22/17 Time of Delivery: 14:58 Time Placenta Delivered: 14:59 Placenta: Yes: Expressed - 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 Present: Yes Name: Gt Traore Infant Gender: Male Weight: 6 lb 1 oz Position: Right, OT Total Hours ROM (Hrs/Mins): 2min - 1 Minute Total Score: 9 5 Minutes Total Score: 9 - [place] Feeding Plan Initial Plan: Elected not to breastfeed exclusively throughout hospitalization Discharge Summary Reason For Visit: Current Active Problems Advanced maternal age (AMA) in (Acute) care following delivery (Acute) with 39 completed weeks gestation (Acute) Previous section complicating (Acute) Procedures: Principal: repeat LST c/s Condition: Good - Instructions Diet, Activity, Other Instructions: follow up in the clinic on for wound check return to clinic on for maury removal on 11/29/17. call [facility] for appointment. [phone] Referrals: Jose Mckoy MD [Staff Physician] - Disposition: HOME - Home Medications Comprehensive Discharge Medication List: Ambulatory Orders Iron 1 tab PO DAILY 09/15/17 Vitamins (Sjr) - 1 tab PO DAILY 09/15/17 Ibuprofen [Motrin Ib] 600 mg PO QID #30 tablet 11/25/17 Oxycodone HCl/Acetaminophen [Percocet 5-325 mg Tablet] 1 tab PO Q6H #20 tablet MDD 4 11/26/17
--- NOTE | 2017-11-28 12:33 | PATH ---
Surgical Pathology Report Patient Name: JOAQUIN FIELD [facility]. Rec. #: [id number] /Age/Gender: 1980 (Age: 37) / F Account: [id number] Location: [facility] OBS/WIND ENERGY TECHNICIAN Taken: 11/22/2017 Received: 11/23/2017 Reported: 11/28/2017 Physicians: Jose Mckoy M.D. Specimen(s) Received A: PLACENTA B: LEFT FALLOPIAN TUBE C: RIGHT FALLOPIAN TUBE Clinical History 39.1 weeks 2 previous C-sections, history of gastric bypass 09/08, ovarian cystectomy x2, appendectomy Final Diagnosis A. PLACENTA, SECTION: 320 g THIRD TRIMESTER PLACENTA WITH TRIVASCULAR UMBILICAL CORD AND UNREMARKABLE PLACENTAL MEMBRANES. B. FALLOPIAN TUBE, LEFT, PARTIAL EXCISION: FULL LUMINAL PORTION OF UNREMARKABLE FALLOPIAN TUBE. C. FALLOPIAN TUBE, RIGHT, PARTIAL EXCISION: FULL LUMINAL PORTION OF UNREMARKABLE FALLOPIAN TUBE. Electronically Signed Janae Granados M.D. Gross Description A. The specimen is received fresh labeled placenta and is a 320 gram, 14.0 x 11.5 x 3.2 cm. placenta with attached membranes and umbilical cord. The attached membranes are mcallister, translucent with focal opacities and insert marginally. The umbilical cord measures 28 cm. in length and averages 1 cm. in diameter. The cord inserts eccentrically, 4.5 cm. to the nearest margin. No true knots or strictures are identified. Cut surface of the umbilical cord reveals 3 vessels. The surface is holloway-blue with minimal fibrin deposition and appropriate caliber vessels. The maternal surface is red-brown with focal defects. Sectioning reveals red-brown, spongy parenchyma. No lesions are identified. Clod Puller sections are submitted in three cassettes as follows: 1- membrane rolls and umbilical cord; 2-3- full thickness sections of placenta. B. Received in formalin labeled "left portion of fallopian tube," is a 1.0 cm in length portion of fallopian tube. No fimbria are present. The outer surface is mcallister holloway and smooth. Sectioning reveals an unremarkable lumen. Clod Puller sections are submitted in one cassette. C. Received in formalin labeled "right portion of fallopian tube," is a 1.4 cm in length portion of fallopian tube. No fimbria are present. The outer surface is mcallister-aparicio and smooth. Sectioning reveals an unremarkable lumen. Clod Puller sections are submitted in one cassette. 11/27/2017 [facility]11/27/2017
== END 2017-11-26 18:30 | disposition home or self-care (01) | DRG 540 ==
LOC: JLDR 12:05 → J3W 17:30
PROVIDERS: ADMIT Obstetrics & Gynecology; ATTEND Obstetrics & Gynecology
PROC: 10D00Z1 Extraction of Products of Conception, Low, Open Approach (ICD-10-PCS; principal; 2017-11-22)
PROC: 0UL70ZZ Occlusion of Bilateral Fallopian Tubes, Open Approach (ICD-10-PCS; 2017-11-22)
DX: O34.211 Maternal care for low transverse scar from previous cesarean delivery (principal); Z3A.39 39 weeks gestation of pregnancy; Z30.2 Encounter for sterilization; Z37.0 Single live birth
CPT/HCPCS: 36415; 80048; 85025; 85610; 85730; 86593; 86850; 86900; 86901; 88302-TC; 88307-TC; 90686; 90715

== ENCOUNTER 2020-03-17 04:07 | Emergency (ER) | payer OTHER ==
[2020-03-17 04:13] VITALS: BMI 27.4
[2020-03-17] MEDS ORDERED: METOCLOPRAMIDE HCL INJECTION 10 MG/2 ML VIAL IVPB ONE (04:26)
[2020-03-17] MEDS ORDERED: methylPREDNISolone NA SUCC 125 MG/2 ML VIAL IVPB ONE (04:26)
[2020-03-17] MEDS ORDERED: SODIUM CHLORIDE 0.9% 500 ML INFUS.BAG IV ONE (04:26)
[2020-03-17] MEDS ORDERED: ACETAMINOPHEN 325 MG TABLET (FP) PO ONE (04:26)
--- NOTE | 2020-03-17 04:28 | PDOC ---
Attending Attestation - Resident Resident Name: Huan Kruger - ED Attending Attestation I have performed the following: I have examined & evaluated the patient, The case was reviewed & discussed with the resident, I agree w/resident's findings & plan - HPI HPI: 03/17/20 06:26 see resident hpi - Physicial Exam PE: 03/17/20 06:26 see resident exam - Medical Decision Making 03/17/20 06:26 40-year-old female with headache described as the worst headache of her life with no associated fever or neck stiffness or rash There is no history of trauma CT scan of the brain shows no acute abnormality Lumbar puncture performed to rule out subarachnoid hemorrhage Results pending, will sign out to oncoming shift for reevaluation and disposition Discharge - Discharge Information Problems reviewed: Yes Clinical Impression/Diagnosis: Headache - Follow up/Referral Referrals: Lila Kimball MD [Primary Care Provider] - - Patient Discharge Instructions - Post Discharge Activity
--- NOTE | 2020-03-17 04:28 | PDOC ---
History of Present Illness - General Chief Complaint: Headache Stated Complaint: HEADCHE/CHESTPAIN - History of Present Illness Initial Comments: The pt is a 40F w/ no reported PMH who presents for evaluation of FOSTER. The FOSTER was gradual onset, b/l, non-radiating, throbbing, associated with photophobia/phonophobia, nausea, and 1 episode of NBNB emesis. She tried Tylenol earlier in the day with minimal relief. She states she usually does not have headaches. She denies fevers/chills, trouble breathing, abdominal pain, dysuria, hematuria, diarrhea, or changes in strength/sensation 03/17/20 04:27 Past History - Medical History Allergies/Adverse Reactions: Allergies Allergy/AdvReac Type Severity Reaction Status Date / Time No Known Allergies Allergy Verified 03/17/20 04:13 Home Medications: Ambulatory Orders Aspirin/Acetaminophen/Caffeine [Excedrin Migraine Caplet] 2 each PO DAILY #20 tablet 03/17/20 Asthma: No Cancer: No Cardiac Disorders: No Diabetes: No HTN: No Seizures: No Thyroid Disease: No - Surgical History Gastric Stapling: Yes (bipass 08/2016) - Psycho-Social/Smoking History Smoking History: Never smoked Have you smoked in the past 12 months: No Information on smoking cessation initiated: No - Substance Abuse Hx (Audit-C & DAST Scrn) How often the patient has a drink containing alcohol: Never Score: In Men: 4 or > Positive; In Women: 3 or > Positive: 0 Screen Result (Pos requires Nsg. Audit-10AR): Negative In the last yr the pt used illegal drug/Rx for NonMed reason: No Score: Yes response is considered Positive: 0 Screen Result (Positive result requires Nsg. DAST-10): Negative Review of Systems - Review of Systems Able to Perform ROS?: Yes Comments:: GENERAL/CONSTITUTIONAL: No fever or chills HEAD, EYES, EARS, NOSE AND THROAT: No change in vision. No change in hearing. No sore throat CARDIOVASCULAR: No chest pain or shortness of breath RESPIRATORY: Denies cough, hemoptysis GASTROINTESTINAL: per HPI GENITOURINARY: No dysuria, frequency, or change in urination MUSCULOSKELETAL: No joint or muscle swelling or pain. No neck pain SKIN: No rash NEUROLOGIC: No vertigo, loss of consciousness, or change in strength/sensation ENDOCRINE: No increased thirst. No abnormal weight change HEMATOLOGIC/LYMPHATIC: No anemia, easy bleeding, or history of blood clots ALLERGIC/IMMUNOLOGIC: No hives or skin allergy *Physical Exam - Vital Signs Last Vital Signs Temp Pulse Resp BP Pulse Ox 98.6 F 74 20 137/82 100 03/17/20 04:11 03/17/20 04:11 03/17/20 04:11 03/17/20 04:11 03/17/20 04:11 - Physical Exam GENERAL: Awake, alert, and oriented to person/place/time, in no acute distress HEAD: No signs of trauma, normocephalic, atraumatic EYES: PERRLA, EOMI, sclera anicteric, conjunctiva clear ENT: Hearing grossly normal, nares patent, oropharynx clear without exudates. Moist mucosa LUNGS: No distress, speaks in full sentences, clear to auscultation bilaterally HEART: Regular rate and rhythm, normal S1 and S2, no murmurs appreciated, pe ripheral pulses normal and equal bilaterally ABDOMEN: Soft, nontender, normoactive bowel sounds. No guarding, no rebound EXTREMITIES: Normal inspection, Normal range of motion, no edema NEUROLOGICAL: Cranial nerves II through XII grossly intact. Normal speech, normal gait, no focal sensorimotor deficits SKIN: Warm, Dry Procedures - Lumbar Puncture Indication: Headache CT Scan: Yes (Neg for acute bleed) Betadine Prep: Yes Position: Right lateral decubitus Site: L3-L4 Local Anesthesia: 1% Lidocaine with epi Volume(ml): 5 Lumbar Puncture Kit: Adult Needle Size(gauge): 22 Traumatic Tap: No Tubes Obtained: 4 Clear Fluid: Yes Complications: No ED Treatment Course - LABORATORY CBC & Chemistry Diagram: 03/17/20 04:50 03/17/20 04:50 - RADIOLOGY Radiology Studies Ordered: Category Date Time Status HEAD CT WITHOUT CONTRAST [CT] Stat CT Scan 03/17/20 04:26 Ordered Medical Decision Making - Medical Decision Making The pt is a 40F w/ no reported PMH who presents for evaluation of FOSTER. Ddx: Migraine, SAH, elevated ICP, not likely intracranial mass ED Course CT w/o acute pathology Labs sent CSF studies pending Tylenol, Reglan, Solumedrol, and IVF given No leukocytosis No anemia Lytes overall unremarkable No KEENAN LFTs unremarkable Serum preg neg UA w/o evidence of UTI LP performed, CSF studies sent Pending CSF studies and re-evaluation Pt reports FOSTER improving some but not resolved Pt signed out to day team pending CSF studies 03/17/20 06:58 Discharge - Discharge Information Problems reviewed: Yes Clinical Impression/Diagnosis: Headache Qualifiers: Headache type: unspecified Headache chronicity pattern: acute headache Intractability: not intractable Qualified Code(s): R51 - Headache Condition: Stable Disposition: HOME - Admission No - Additional Discharge Information Prescriptions: Aspirin/Acetaminophen/Caffeine [Excedrin Migraine Caplet] 2 each PO DAILY #20 tablet - Follow up/Referral Referrals: Lila Kimball MD [Primary Care Provider] - - Patient Discharge Instructions Patient Printed Discharge Instructions: DI for Lumbar Puncture, DI for Headache Print Language: BELIZEAN - Post Discharge Activity
[2020-03-17] MEDS ORDERED: ACETAMINOPHEN 325 MG TABLET (FP) ONE (04:34)
[2020-03-17] MEDS ORDERED: methylPREDNISolone NA SUCC 125 MG/2 ML VIAL ONE (04:34)
[2020-03-17] MEDS ORDERED: METOCLOPRAMIDE HCL INJECTION 10 MG/2 ML VIAL ONE (04:34)
[2020-03-17 05:02] LABS: BASO % 0.7 % (0-2.0); EOS % 0.7 % (0-4.5); HEMATOCRIT 34.4 % (32.4-45.2); HEMOGLOBIN 11.6 GM/dL (10.7-15.3); LYMPH % 22.2 % (8-40); MCH 29.5 pg (25.7-33.7); MCHC 33.6 g/dl (32.0-36.0); MEAN CELL VOLUME 87.5 fl (80-96); MEAN PLT VOLUME 8.8 fl (7.5-11.1); MONO % 6.4 % (3.8-10.2); PLATELET COUNT 276 K/MM3 (134-434); RBC 3.93 M/mm3 (3.60-5.2); RDW 12.9 % (11.6-15.6); WHITE BLOOD COUNT 7.8 K/mm3 (4.0-10.0)
[2020-03-17 05:25] LABS: ALBUMIN 3.8 g/dl (3.4-5.0); BILIRUBIN,TOTAL 0.2 mg/dL (0.2-1); BLOOD UREA NITROGEN 14.5 mg/dL (7-18); CALCIUM 8.7 mg/dL (8.5-10.1); CREATININE 0.9 mg/dL (0.55-1.3); POTASSIUM 3.6 mmol/L (3.5-5.1); TOT PROT 7.4 g/dl (6.4-8.2)
[2020-03-17 07:20] LABS: BF GLUCOSE (CSF ONLY) 58 mg/dL (40-70)
[2020-03-17 07:31] LABS: CSF APPEARANCE CLEAR; CSF COLOR COLORLESS
[2020-03-17 07:32] LABS: CSF WBC 1
--- NOTE | 2020-03-17 08:18 | PDOC ---
*Physical Exam - Vital Signs Last Vital Signs Temp Pulse Resp BP Pulse Ox 98.6 F 74 20 137/82 100 03/17/20 04:11 03/17/20 04:11 03/17/20 04:11 03/17/20 04:11 03/17/20 04:11 - Physical Exam 03/17/20 08:12 Patient endorsed to me by Dr. molina. Patient is a 40-year-old female who presented with a worse headache of her life. Patient was noted to be nonfocal neurologically. CT of head obtained revealed no evidence of acute intracranial pathology. LP was performed for the purposes of rule out meningitis/subarachnoid hemorrhage. CSF was noted to be colorless, 1 WBC was noted, 5 RBCs were noted in tube 4. 1 WBC and 560 RBCs were noted and tube 1. Findings are consistent with traumatic LP. No evidence of xanthochromia is identified. Patient reports significant improvement in level of her symptoms. Will discharge with outpatient follow-up. ED Treatment Course - LABORATORY CBC & Chemistry Diagram: 03/17/20 04:50 03/17/20 04:50 - ADDITIONAL ORDERS Additional order review: Laboratory Results 03/17/20 03/17/20 03/17/20 06:14 04:50 04:50 Sodium 140 Potassium 3.6 Chloride 108 H Carbon Dioxide 26 Anion Gap 6 L BUN 14.5 Creatinine 0.9 Est GFR (CKD-EPI)AfAm 93.35 Est GFR (CKD-EPI)NonAf 80.54 Random Glucose 102 Calcium 8.7 Total Bilirubin 0.2 AST 20 ALT 25 Alkaline Phosphatase 76 Total Protein 7.4 Albumin 3.8 Serum , Qual Negative CSF Appearance Clear CSF Color Colorless CSF WBC 1 CSF RBC 5 CSF Neutrophils No Result Required. CSF Lymphocytes No Result Required. CSF Eosinophils No Result Required. CSF Basophils No Result Required. CSF Macrophages No Result Required. CSF Plasma Cells No Result Required. CSF Diff Comment No Result Required. CSF Comment Tube #4 CSF Glucose 58 CSF Total Protein 32 03/17/20 06:14 Gram Stain - Final Cerebral Spinal Fluid - Lumbar Puncture 03/17/20 04:50 RBC 3.93 MCV 87.5 MCHC 33.6 RDW 12.9 MPV 8.8 Neutrophils % 70.0 D Lymphocytes % 22.2 D Monocytes % 6.4 Eosinophils % 0.7 Basophils % 0.7 - Medications Given in the ED: ED Medications Discontinued Medications Generic Name Dose Route Start Last Admin Trade Name Kenny PRN Reason Stop Dose Admin Acetaminophen 975 mg 03/17/20 04:26 03/17/20 04:55 Tylenol - PO 03/17/20 04:27 975 mg ONCE ONE Administration Methylprednisolone Sodium Succinate 125 mg 03/17/20 04:26 03/17/20 04:55 Solu-Medrol - IVPB 03/17/20 04:27 125 mg ONCE ONE Administration Metoclopramide HCl 10 mg 03/17/20 04:26 03/17/20 04:55 Reglan Injection - IVPB 03/17/20 04:27 10 mg ONCE ONE Administration Sodium Chloride 1,000 ml 03/17/20 04:26 03/17/20 04:55 Normal Saline - IV 03/17/20 04:27 1,000 ml ONCE ONE Administration Discharge - Discharge Information Problems reviewed: Yes Clinical Impression/Diagnosis: Headache Qualifiers: Headache type: unspecified Headache chronicity pattern: acute headache Intractability: not intractable Qualified Code(s): R51 - Headache Disposition: HOME - Follow up/Referral Referrals: Lila Kimball MD [Primary Care Provider] - - Patient Discharge Instructions Patient Printed Discharge Instructions: DI for Headache, DI for Lumbar Puncture Print Language: MACEDONIAN - Post Discharge Activity
[2020-03-17 08:43] LABS: PH,URINE 8.5 (5.0-8.0); URINE APPEARANCE CLEAR; URINE BILIRUBIN NEGATIVE (NEGATIVE); URINE COLOR YELLOW; URINE GLUCOSE (UA) NEGATIVE (NEGATIVE); URINE KETONE NEGATIVE (NEGATIVE); URINE LEUK ESTERASE NEGATIVE (NEGATIVE); URINE NITRITE NEGATIVE (NEGATIVE); URINE PROTEIN NEGATIVE (NEGATIVE); URINE UROBILINOGEN 0.2 mg/dL (0.2-1.0)
[2020-03-17 08:54] VITALS: BP 127/62; PULSE 64; TEMP 98.5
[2020-03-23 00:33] LABS: CSF APPEARANCE CLEAR; CSF COLOR COLORLESS
[2020-03-23 00:34] LABS: CSF WBC 1
== END 2020-03-17 08:54 | disposition home or self-care (01) ==
LOC: JER 04:07
PROC: 009U3ZX Drainage of Spinal Canal, Percutaneous Approach, Diagnostic (ICD-10-PCS; principal; 2020-03-17)
PROC: 3E033GC Introduction of Other Therapeutic Substance into Peripheral Vein, Percutaneous Approach (ICD-10-PCS; principal; 2020-03-17)
DX: R51 Headache (principal)
CPT/HCPCS: 36415; 70450-TC; 80053; 81003; 82945; 84157; 84703; 85025; 87070; 87205; 99285-25

== ENCOUNTER 2020-03-20 17:26 | Emergency (ER) | payer OTHER ==
[2020-03-20 17:32] VITALS: BMI 28.3
[2020-03-20] MEDS ORDERED: METOCLOPRAMIDE HCL INJECTION 10 MG/2 ML VIAL IVPB ONE (17:32)
[2020-03-20] MEDS ORDERED: ACETAMINOPHEN 1000 MG/100 ML VIAL (NON FORMULARY) IVPB ONE (17:32)
[2020-03-20] MEDS ORDERED: SODIUM CHLORIDE 1,000 ML IV STA (17:34)
[2020-03-20] MEDS ORDERED: ACETAMINOPHEN INJECTION 100 ML IVPB ONE (17:43)
[2020-03-20] MEDS ORDERED: METOCLOPRAMIDE HCL INJECTION 10 MG/2 ML VIAL ONE (17:43)
[2020-03-20] MEDS ORDERED: KETOROLAC TROMETHAMINE 30 MG/1 ML VIAL IVPUSH ONE (18:07)
[2020-03-20] MEDS ORDERED: KETOROLAC TROMETHAMINE 15 MG/ML VIAL ONE (18:27)
[2020-03-20 18:46] LABS: MCHC 33.3 g/dl (32.0-36.0); PLATELET COUNT 329 K/MM3 (134-434); RBC 4.25 M/mm3 (3.60-5.2); RDW 13.1 % (11.6-15.6); WHITE BLOOD COUNT 7.9 K/mm3 (4.0-10.0)
[2020-03-20 19:02] LABS: ALBUMIN 3.9 g/dl (3.4-5.0); BASO % 1.1 % (0-2.0); BILIRUBIN,TOTAL 0.3 mg/dL (0.2-1); BLOOD UREA NITROGEN 13.7 mg/dL (7-18); CALCIUM 8.8 mg/dL (8.5-10.1); EOS % 0.7 % (0-4.5); HEMATOCRIT 37.5 % (32.4-45.2); HEMOGLOBIN 12.5 GM/dL (10.7-15.3); LYMPH % 25.6 % (8-40); MAGNESIUM 2.5 mg/dL (1.8-2.4); MCH 29.5 pg (25.7-33.7); MEAN CELL VOLUME 88.4 fl (80-96); MEAN PLT VOLUME 9.2 fl (7.5-11.1); MONO % 6.4 % (3.8-10.2); NEUT % 66.2 % (42.8-82.8); POTASSIUM 4.2 mmol/L (3.5-5.1); TOT PROT 7.7 g/dl (6.4-8.2)
[2020-03-20] MEDS ORDERED: DEXAMETHASONE 4 MG TABLET (FP) PO ONE (19:38)
[2020-03-20 20:31] VITALS: BP 118/77; PULSE 64; TEMP 97.8
== END 2020-03-20 20:32 | disposition home or self-care (01) ==
LOC: JER 17:26
PROC: 3E0337Z Introduction of Electrolytic and Water Balance Substance into Peripheral Vein, Percutaneous Approach (ICD-10-PCS; principal; 2020-03-20)
PROC: 3E033GC Introduction of Other Therapeutic Substance into Peripheral Vein, Percutaneous Approach (ICD-10-PCS; principal; 2020-03-20)
DX: G43.009 Migraine without aura, not intractable, without status migrainosus (principal)
CPT/HCPCS: 36415; 80053; 83735; 84703; 85025; 99284-25; J0131

== ENCOUNTER 2020-10-26 05:24 | Day surgery (SDC) | payer OTHER ==
[2020-10-21 16:39] VITALS: BMI 27.4
[2020-10-26] MEDS ORDERED: MIDAZOLAM HCL 2 MG/2 ML SINGLE DOSE VIAL ONE (13:17)
[2020-10-26] MEDS ORDERED: PROPOFOL 20 ML ONE ×2 (13:17→13:23)
[2020-10-26] MEDS ORDERED: ceFAZolin SODIUM 1 GM VIAL ONE (13:38)
[2020-10-26] MEDS ORDERED: ceFAZolin SODIUM 1 GM VIAL IVPB ONE (13:38)
[2020-10-26] MEDS ORDERED: LIDOCAINE 1%/EPI 1:100000 (50 ML MULTI DOSE VIAL) ONE (13:45)
[2020-10-26] MEDS ORDERED: oxyCODONE HCL 5 MG TABLET PO PRN ×2 (14:01)
[2020-10-26] MEDS ORDERED: ONDANSETRON 4 MG/2 ML VIAL IVPUSH PRN (14:01)
[2020-10-26] MEDS ORDERED: LACTATED RINGERS SOLUTION 1,000 ML IV SCH (14:15)
[2020-10-26] MEDS ORDERED: ACETAMINOPHEN 1000 MG/100 ML VIAL (NON FORMULARY) IVPB ONE ×2 (14:20→14:33)
[2020-10-26] MEDS ORDERED: ACETAMINOPHEN INJECTION 100 ML IVPB ONE (14:21)
[2020-10-26 16:19] LABS: BASO % 0.7 % (0-2.0); EOS % 0.3 % (0-4.5); HEMATOCRIT 30.6 % (32.4-45.2); HEMOGLOBIN 10.2 GM/dL (10.7-15.3); LYMPH % 18.8 % (8-40); MCHC 33.4 g/dl (32.0-36.0); MEAN CELL VOLUME 86.8 fl (80-96); MEAN PLT VOLUME 8.4 fl (7.5-11.1); MONO % 2.7 % (3.8-10.2); NEUT % 77.5 % (42.8-82.8); PLATELET COUNT 287 K/MM3 (134-434); RBC 3.53 M/mm3 (3.60-5.2); RDW 14.2 % (11.6-15.6); WHITE BLOOD COUNT 6.9 K/mm3 (4.0-10.0)
[2020-10-26 17:23] VITALS: TEMP 97.7
[2020-10-26] MEDS ORDERED: oxyCODONE HCL 5 MG TABLET ONE (17:58)
[2020-10-26 18:51] VITALS: BP 125/76; PULSE 106
== END 2020-10-26 19:05 | disposition home or self-care (01) ==
LOC: JASU-SURG 05:24
PROVIDERS: ATTEND Urology
PROC: 0TSD0ZZ Reposition Urethra, Open Approach (ICD-10-PCS; principal; 2020-10-26 12:00)
DX: N39.3 Stress incontinence (female) (male) (principal)
CPT/HCPCS: 57288; C1771; 36415; 81025; 85025; 94760; J0131

== ENCOUNTER 2021-01-25 04:27 | Day surgery (SDC) | payer OTHER ==
[2021-01-24 19:18] VITALS: BMI 26.5
[2021-01-25] MEDS ORDERED: LIDOCAINE 1%/EPI 1:100000 (50 ML MULTI DOSE VIAL) ONE (09:56)
[2021-01-25] MEDS ORDERED: VASOPRESSIN 20 UNITS/ML VIAL IV ONE (09:56)
[2021-01-25] MEDS ORDERED: LIDOCAINE HCL/PF 2% SDV 5ML VIAL ONE (10:17)
[2021-01-25] MEDS ORDERED: PROPOFOL 20 ML ONE ×2 (10:18→10:22)
[2021-01-25] MEDS ORDERED: MIDAZOLAM HCL 2 MG/2 ML SINGLE DOSE VIAL ONE (10:18)
[2021-01-25] MEDS ORDERED: ceFAZolin SODIUM 1 GM VIAL ONE (10:26)
[2021-01-25] MEDS ORDERED: ceFAZolin SODIUM 1 GM VIAL IVPB ONE (10:28)
[2021-01-25] MEDS ORDERED: DEXAMETHASONE SOD PHOSPHATE 4 MG/1 ML VIAL ONE (10:37)
[2021-01-25] MEDS ORDERED: ONDANSETRON 4 MG/2 ML VIAL ONE (10:37)
[2021-01-25] MEDS ORDERED: LIDOCAINE HCL 1%, 10 MG/ML (20ML VIAL) INF ONE ×2 (10:38)
[2021-01-25] MEDS ORDERED: KETOROLAC TROMETHAMINE 30 MG/1 ML VIAL ONE (10:51)
[2021-01-25] MEDS ORDERED: oxyCODONE HCL 5 MG TABLET PO PRN ×3 (11:19→15:03)
[2021-01-25] MEDS ORDERED: ONDANSETRON 4 MG/2 ML VIAL IVPUSH PRN (11:19)
[2021-01-25] MEDS ORDERED: ACETAMINOPHEN 1000 MG/100 ML VIAL (NON FORMULARY) IVPB ONE (11:20)
[2021-01-25] MEDS ORDERED: LACTATED RINGERS SOLUTION 1,000 ML IV SCH (11:30)
[2021-01-25] MEDS ORDERED: oxyCODONE HCL 5 MG TABLET PO ONE ×3 (14:05→18:30)
[2021-01-25] MEDS ORDERED: oxyCODONE HCL 5 MG TABLET ONE ×3 (14:06→18:24)
[2021-01-25] MEDS ORDERED: ACETAMINOPHEN 325 MG TABLET (FP) PO PRN ×2 (14:41→14:42)
[2021-01-25] MEDS ORDERED: ACETAMINOPHEN 325 MG TABLET (FP) ONE (17:36)
[2021-01-25] MEDS ORDERED: MELATONIN 5 MG TABLETS PO ONE (21:49)
[2021-01-25] MEDS: oxyCODONE HCL 5 MG TABLET PO PRN (22:32)
[2021-01-26] MEDS: ACETAMINOPHEN 325 MG TABLET (FP) PO PRN ×2 (01:22→19:24)
[2021-01-26] MEDS: oxyCODONE HCL 5 MG TABLET PO PRN ×3 (05:34→16:58)
[2021-01-26 08:26] LABS: BASO % 0.6 % (0-2.0); EOS % 0.5 % (0-4.5); HEMATOCRIT 27.1 % (32.4-45.2); HEMOGLOBIN 8.9 GM/dL (10.7-15.3); LYMPH % 29.7 % (8-40); MCHC 32.8 g/dl (32.0-36.0); MEAN CELL VOLUME 82.1 fl (80-96); MONO % 6.8 % (3.8-10.2); NEUT % 62.4 % (42.8-82.8); PLATELET COUNT 325 K/MM3 (134-434); RDW 14.6 % (11.6-15.6); WHITE BLOOD COUNT 9.7 K/mm3 (4.0-10.0)
[2021-01-26 09:10] LABS: CALCIUM 8.5 mg/dL (8.5-10.1)
[2021-01-26 09:11] LABS: BLOOD UREA NITROGEN 8.8 mg/dL (7-18); MAGNESIUM 1.9 mg/dL (1.8-2.4)
[2021-01-26 09:14] LABS: CREATININE 0.8 mg/dL (0.55-1.3)
[2021-01-26] MEDS ORDERED: FLU VACCINE (FLULAVAL) PF 60 MCG/0.5 ML SYRINGE 2020-2021 IM ONE (10:00)
[2021-01-26 15:51] VITALS: BP 117/73; PULSE 66; TEMP 97.3
== END 2021-01-26 21:02 | disposition home or self-care (01) ==
LOC: JASU-SURG 04:27 → UNDOADMIN 14:30 → J2C 14:30 → J8W 20:46 → J2C 20:46 → J8W 20:46 → JASU-SURG 01-26 21:02
PROVIDERS: ATTEND Urology
PROC: 0TSD0ZZ Reposition Urethra, Open Approach (ICD-10-PCS; principal; 2021-01-25 10:00)
DX: N39.3 Stress incontinence (female) (male) (principal)
CPT/HCPCS: 57288; C1771; 36415; 80048; 81025; 83735; 85025; 88305-TC; 94760; J0131; Q2036

== ENCOUNTER 2021-02-25 10:08 | Day surgery (SDC) | payer OTHER ==
[2021-02-22 11:27] VITALS: BMI 27.1
[~2021-02-25 10:08] MED LIST: BUPIVACAINE HCL/PF 0.25% (2.5MG/ML) 10 ML VIAL IJ ONE
[2021-02-25] MEDS ORDERED: PROMETHAZINE HCL 25 MG/1 ML VIAL IVPUSH PRN (10:26)
[2021-02-25] MEDS ORDERED: ONDANSETRON 4 MG/2 ML VIAL IVPUSH PRN (10:26)
[2021-02-25] MEDS ORDERED: oxyCODONE HCL 5 MG TABLET PO PRN (10:26)
[2021-02-25] MEDS ORDERED: LACTATED RINGERS SOLUTION 1,000 ML IV SCH (10:30)
[2021-02-25] MEDS ORDERED: BUPIVACAINE HCL/PF 0.25% (2.5MG/ML) 10 ML VIAL ONE (11:24)
[2021-02-25] MEDS ORDERED: MIDAZOLAM HCL 2 MG/2 ML SINGLE DOSE VIAL ONE (11:30)
[2021-02-25] MEDS ORDERED: EPINEPHrine 1:1,000 1 MG/1 ML - 30ML VIAL (INJECTION) ONE (11:41)
[2021-02-25] MEDS ORDERED: ONDANSETRON 4 MG/2 ML VIAL ONE ×2 (11:45→12:44)
[2021-02-25] MEDS ORDERED: DEXAMETHASONE SOD PHOSPHATE 4 MG/1 ML VIAL ONE (11:45)
[2021-02-25] MEDS ORDERED: BUPIVACAINE HCL/PF 0.25% (2.5MG/ML) 10 ML VIAL IJ ONE ×2 (11:45→12:20)
[2021-02-25] MEDS ORDERED: KETOROLAC TROMETHAMINE 30 MG/1 ML VIAL ONE (11:46)
[2021-02-25] MEDS ORDERED: ceFAZolin SODIUM 1 GM VIAL ONE (11:47)
[2021-02-25] MEDS ORDERED: SODIUM CHLORIDE 0.9% P/F 10 ML VIAL IJ ONE (11:47)
[2021-02-25] MEDS ORDERED: BENZOCAINE/MENTH/CETYLPYRD CL 1 EACH LOZENGE MM PRN (12:40)
[2021-02-25] MEDS ORDERED: ACETAMINOPHEN INJECTION 100 ML IVPB ONE (12:56)
[2021-02-25] MEDS ORDERED: ACETAMINOPHEN 1000 MG/100 ML VIAL (NON FORMULARY) IVPB ONE (12:58)
[2021-02-25] MEDS ORDERED: oxyCODONE HCL 5 MG TABLET ONE (13:05)
[2021-02-25] MEDS ORDERED: HYDROmorphone HCL/PF 1 MG/ML VIAL ONE (13:48)
[2021-02-25 14:24] VITALS: TEMP 97.8
[2021-02-25 15:37] VITALS: BP 132/74; PULSE 78
== END 2021-02-25 16:20 | disposition home or self-care (01) ==
LOC: FASU 10:08
PROVIDERS: ATTEND Orthopaedic Surgery Sports Medicine
PROC: 0SBC4ZZ Excision of Right Knee Joint, Percutaneous Endoscopic Approach (ICD-10-PCS; principal; 2021-02-25 11:59)
PROC: 0M9N3ZZ Drainage of Right Knee Bursa and Ligament, Percutaneous Approach (ICD-10-PCS; 2021-02-25 11:59)
DX: M65.861 Other synovitis and tenosynovitis, right lower leg (principal); M71.21 Synovial cyst of popliteal space [Baker], right knee
CPT/HCPCS: 84703; 88108; 88304-TC; 88305-TC; 94760; J0131

== ENCOUNTER 2023-05-24 14:30 | Emergency (ER) | payer OTHER ==
[2023-05-24 14:39] VITALS: BP 117/78; PULSE 91; RESP 20; TEMP 97.8; BMI 25.7
[2023-05-24] MEDS ORDERED: ACETAMINOPHEN 500 MG TABLET (FP) PO ONE (15:32)
[2023-05-24] MEDS ORDERED: ACETAMINOPHEN 500 MG TABLET (FP) ONE (15:34)
[2023-05-24 15:44] LABS: BASO % 1.2 % (0-2.0); EOS % 2.4 % (0-4.5); HEMATOCRIT 33.8 % (32.4-45.2); HEMOGLOBIN 11.2 GM/dL (10.7-15.3); LYMPH % 27.7 % (8-40); MCH 29.6 pg (25.7-33.7); MEAN CELL VOLUME 89.6 fl (80-96); MEAN PLT VOLUME 8.3 fl (7.5-11.1); MONO % 7.5 % (3.8-10.2); NEUT % 61.2 % (42.8-82.8); PLATELET COUNT 370 10^3/uL (134-434); RBC 3.77 M/mm3 (3.60-5.2); RDW 12.9 % (11.6-15.6); WHITE BLOOD COUNT 6.9 K/mm3 (4.0-10.0)
[2023-05-24 16:30] LABS: ALBUMIN 3.7 g/dl (3.4-5.0); BILIRUBIN,TOTAL 0.4 mg/dL (0.2-1); BLOOD UREA NITROGEN 15.1 mg/dL (7-18); CREATININE 0.8 mg/dL (0.55-1.3); POTASSIUM 3.7 mmol/L (3.5-5.1); TOT PROT 7.5 g/dl (6.4-8.2)
== END 2023-05-24 16:45 | disposition home or self-care (01) ==
LOC: JERFT 14:30
DX: R05.9 Cough, unspecified (principal); R51.9 Headache, unspecified; J32.8 Other chronic sinusitis; H52.531 Spasm of accommodation, right eye; Z20.822 Contact with and (suspected) exposure to COVID-19
CPT/HCPCS: 0241U-QW; 36415; 71046-TC-FY; 80053; 82310; 83735; 83970; 85025; 99284-25